=== PATIENT | female | born 1945 | race Two or more races ===

== ENCOUNTER 2025-05-19 10:40 | Emergency (ER) | payer OTHER, MEDICAID ==
[~2025-05-19] VITALS: Ht 167.6 cm; Wt 69.0 kg
[~2025-05-19 10:40] MED LIST: ABIL5 PO; AMLO10TA80 PO; DABI150C PO; DIVA-73 PO; DULO60CA45 PO; FAMO20TA8 PO; LIP40 PO; LOSA50TA41 PO
[2025-05-19 10:43] VITALS: O2SAT 99
[2025-05-19 12:21] LABS: CLARITY URINE CLEAR (CLEAR); COLOR URINE YELLOW (YELLOW); GLUCOSE URINE NEGATIVE (NEGATIVE); KETONES URINE NEGATIVE (NEGATIVE); LEUKOCYTE ESTERASE URINE TRACE (NEGATIVE); NITRITE URINE NEGATIVE (NEGATIVE); OCCULT BLOOD URINE NEGATIVE (NEGATIVE); PH URINE 7.0 (4.5-8.0); PROTEIN URINE NEGATIVE (NEGATIVE); SPECIFIC GRAVITY URINE 1.009 (1.005-1.030); UROBILINOGEN URINE 1.0 E.U./dL (0.2-1.0)
[2025-05-19 12:30] LABS: SQUAMOUS EPITHELIAL CELL URINE 2+ /lpf (RARE/1+)
[2025-05-19 12:32] LABS: RBC URINE 0-2 /hpf (0-2); WBC URINE 0-2 /hpf (0-2)
[2025-05-19 12:33] LABS: BACTERIA URINE NONE SEEN
[2025-05-19] MEDS: SODIUM CHLORIDE 0.9% 1,000 ML IV ONE (12:35)
[2025-05-19 12:41] LABS: BASOPHILS % 0.3 % (0.0-2.0); EOSINOPHILS % 0.8 % (0.0-5.0); HEMATOCRIT. 33.2 % (36.0-48.0); HEMOGLOBIN. 11.1 g/dL (12.0-16.0); LYMPHOCYTES % 18.5 % (20.0-50.0); MEAN PLATELET VOLUME 8.4 fl (7.4-10.4); MONOCYTES % 9.5 % (2.0-8.0); NEUTROPHILS % 70.9 % (40.0-76.0); PLATELET 303 x1000/uL (130-400); RED BLOOD CELL COUNT 3.60 mill/uL (4.2-5.4); RED CELL DISTRIBUTION WIDTH 14.4 % (11.6-14.6)
[2025-05-19 12:48] LABS: CREATININE 0.7 mg/dL (0.6-1.0); ETHANOL BLOOD < 10 mg/dL (<10); UREA NITROGEN BLOOD 13 mg/dL (9-23)
[2025-05-19 12:49] LABS: TROPONIN I HIGH SENSITIVITY 16 ng/L (3.0-34)
[2025-05-19 12:50] LABS: ASPARTATE AMINOTRANSFERASE 22 IU/L (<34); BILIRUBIN DIRECT 0.2 mg/dL (<=3.0); BILIRUBIN TOTAL 0.5 mg/dL (0.1-1.0); PROTEIN TOTAL 6.0 g/dL (6.0-8.3)
[2025-05-19] MEDS: CALCIUM GLUCONATE 1GM PREMIX 50 ML IV NR (14:24)
[2025-05-19 17:15] VITALS: BP 135/73; PULSE 97; RESP 16; TEMP 36.9; O2SAT 99
== END 2025-05-19 17:39 | disposition short-term general hospital (02) ==
LOC: ER 10:40 → EDBEDREQ 11:54 → CANBEDREQ 15:37 → ER 17:39
DX: I95.9 Hypotension, unspecified (principal); F41.9 Anxiety disorder, unspecified; J44.9 Chronic obstructive pulmonary disease, unspecified; I10 Essential (primary) hypertension; F32.A Depression, unspecified; R06.02 Shortness of breath; Z98.890 Other specified postprocedural states; Z79.899 Other long term (current) drug therapy; Z86.73 Personal history of transient ischemic attack (TIA), and cerebral infarction without residual deficits; Z88.0 Allergy status to penicillin; Z88.1 Allergy status to other antibiotic agents; Z88.2 Allergy status to sulfonamides; Z88.7 Allergy status to serum and vaccine
CPT/HCPCS: 80076; 80048; 81003; 80320; 83880; 85025; 84484; 36415; 71045; 70450; 93005; 96361; 96365; 99285; J0612; J7030; A4606; G0480